=== PATIENT | male | born 1950 | race Hispanic/Latino ===

== ENCOUNTER 2017-01-10 08:40 | Emergency (ER) | payer SELFPAY ==
[2017-01-10 08:48] VITALS: TEMP 97.6
[2017-01-10] MEDS ORDERED: Sodium Chloride 0.9% 1,000 ML IV STA (09:59)
--- NOTE | 2017-01-10 10:01 | C.PDOC ---
History Of Present Illness 66 y/o male presents to ED with complaints of vomiting and severe dizziness since this morning. Patient has no prior medical history but states he does not have PMD and has not been seen by a doctor in years. Patient denies headache, fever, chills, cp or any other complaints at this time. Time Seen by Provider: 01/10/17 09:24 Chief Complaint (Nursing): Dizziness/Lightheaded History Per: Patient History/Exam Limitations: no limitations Onset/Duration Of Symptoms: Hrs Current Symptoms Are (Timing): Still Present Past Medical History Reviewed: Historical Data, Nursing Documentation, Vital Signs Vital Signs: Last Vital Signs Temp 97.6 F 01/10/17 08:46 Pulse 92 H 01/10/17 13:00 Resp 15 01/10/17 13:00 BP 119/70 01/10/17 13:00 Pulse Ox 99 01/10/17 13:11 Family History: States: No Known Family Hx - Social History Hx Alcohol Use: No Hx Substance Use: No Review Of Systems Except As Marked, All Systems Reviewed And Found Negative. Constitutional: Negative for: Fever, Chills Respiratory: Negative for: Shortness of Breath Gastrointestinal: Positive for: Vomiting. Negative for: Nausea, Abdominal Pain Skin: Negative for: Rash Neurological: Positive for: Dizziness. Negative for: Numbness, Headache Physical Exam - Physical Exam Appears: Non-toxic, No Acute Distress Skin: Normal Color, Warm, Dry, No Rash Head: Atraumatic, Normacephalic Eye(s): bilateral: Normal Inspection, PERRL, EOMI, Other (Horizontal Nystagmus) Oral Mucosa: Moist Neck: Normal ROM, Supple Chest: Symmetrical Cardiovascular: Rhythm Regular Respiratory: Normal Breath Sounds, No Rales, No Rhonchi, No Wheezing Gastrointestinal/Abdominal: Soft, No Tenderness, No Guarding, No Rebound Extremity: Normal ROM Neurological/Psych: Oriented x3, Normal Speech, Normal Cognition, Normal Motor, Normal Sensation Gait: Steady ED Course And Treatment - Laboratory Results Result Diagrams: 01/10/17 10:10 01/10/17 10:10 ECG: Interpreted By Me, Viewed By Me Interpretation Of ECG: T waves in 3 and aVF Rate From EC (bpm) O2 Sat by Pulse Oximetry: 99 (RA) Pulse Ox Interpretation: Normal - Other Rad CXR X-Ray: Viewed By Me, Read By Radiologist Interpretation: Accession No. : [id number]. Patient Name / ID : ARLEN TIRADO / [id number]. Exam Date : 01/10/2017 10:01:09 ( Approved ). Study Comment : Sex / Age : M / 66Y. Creator : Chriss Higgins MD. Dictator : Chriss Higgins MD. Court Monitor : Mailing Specialist : Chriss Higgins MD. Approver2 : Report Date : 01/10/2017 11:18:17. My Comment : . PROCEDURE: CHEST RADIOGRAPH, 1 VIEW. HISTORY: dizzy. COMPARISON: No prior study available for comparison. FINDINGS: LUNGS: Poor inspiration with low lung volumes, crowded bronchovascular markings and mild bibasilar. PLEURA: No pneumothorax or pleural fluid seen. CARDIOVASCULAR: Normal. OSSEOUS STRUCTURES: No significant abnormalities. VISUALIZED UPPER ABDOMEN: Normal. OTHER FINDINGS: None. IMPRESSION: Poor inspiration with low lung volumes, crowded bronchovascular markings and mild bibasilar - CT Scan/US Head CT Other Rad Studies (CT/US): Read By Radiologist, Radiology Report Reviewed CT/US Interpretation: Accession No. : [id number]. Patient Name / ID : ARLEN TIRADO / [id number]. Exam Date : 01/10/2017 10:50:58 ( Approved ). Study Comment : Sex / Age : M / 66Y. Creator : Jalen Salinas MD. Dictator : Jalen Salinas MD. Court Monitor : Mailing Specialist : Jalen Salinas MD. Approver2 : Report Date : 01/10/2017 11:03:42. My Comment : . PROCEDURE : CT HEAD WITHOUT CONTRAST. HISTORY: dizziness/vomiting. COMPARISON: None available. TECHNIQUE: Axial computed tomography images were obtained through the head/brain without intravenous contrast. Radiation dose: Total exam DLP = 937.41 mGy-cm. This CT exam was performed using one or more of the following dose reduction techniques: Automated exposure control, adjustment of the mA and/ or kV according to patient size, and/or use of iterative reconstruction technique. FINDINGS: HEMORRHAGE: No intracranial hemorrhage. BRAIN: No mass effect or edema. No atrophy or chronic microvascular ischemic changes. VENTRICLES: Unremarkable. No hydrocephalus. CALVARIUM: Unremarkable. PARANASAL SINUSES: Complete opacification of visualized right maxillary sinus with possible widening of the ostium, suggestive of antrochoanal polyp. Extensive ethmoid chronic sinusitis. Chronic frontal sinusitis and chronic sphenoid sinusitis. Chronic left maxillary sinusitis. MASTOID AIR CELLS: Unremarkable as visualized. No inflammatory changes. OTHER FINDINGS: None. IMPRESSION: No intracranial mass, hemorrhage or evidence of acute infarct. 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 Progress Note: Patient was treated with Zofrana nd Meclizine and Tylenol (for mild headache). However patient still c/o dizziness and "spinning sensation". Patient was offered an admission, but he declines. Family is on bedside and support patient's decision to leave ED AMA. Risks of leaving AMA were explained to the patient and family members. They verbalized understanding, but still insisting on leaving. Medical Decision Making Medical Decision Making: Plan: * Full work up Disposition - Disposition Referrals: [facility] [Outside] [facility] [Outside] [facility] [Outside] Disposition: AGAINST MEDICAL ADVICE Disposition Time: 13:09 Condition: FAIR Additional Instructions: Follow up in Clinic within 1-2 days. Return to ED immediately if feel worse. Prescriptions: Meclizine [Meclizine*] 25 mg PO Q6 #30 tab Instructions: Vertigo (ED), Dizziness (ED) Forms: [facility] ([place]), Work Excuse - Clinical Impression Clinical Impression: Dizziness - Scribe Statement The provider has reviewed the documentation as recorded by the Gregoryibharriet Vegas All medical record entries made by the Scribe were at my direction and personally dictated by me. I have reviewed the chart and agree that the record accurately reflects my personal performance of the history, physical exam, medical decision making, and the department course for this patient. I have also personally directed, reviewed, and agree with the discharge instructions and disposition.
[2017-01-10] MEDS ORDERED: Sodium Chloride 0.9% 1,000 ML ONE (10:06)
[2017-01-10 10:15] LABS: BASO # 0.1 K/uL (0.0-0.2); BASO % 0.8 % (0.0-2.0); EOS # 0.1 K/uL (0.0-0.7); EOS % 1.1 % (0.0-4.0); HEMATOCRIT 47.8 % (35.0-51.0); LYMPH # 1.7 K/uL (1.0-4.3); LYMPH % 25.1 % (20.0-40.0); MEAN CORPUSCULAR HEMOGLOBIN 29.4 pg (27.0-31.0); MEAN CORPUSCULAR HGB CONC 33.8 g/dL (33.0-37.0); MEAN PLATELET VOLUME 6.8 fL (7.2-11.7); MONO # 0.4 K/uL (0.0-0.8); MONO % 5.7 % (0.0-10.0); RED CELL DISTRIBUTION WIDTH 13.8 % (11.5-14.5); WHITE BLOOD COUNT 6.9 K/uL (4.8-10.8)
[2017-01-10 10:23] LABS: CHLORIDE 103 mmol/L (98-107); SODIUM 140 mmol/L (132-148)
[2017-01-10 10:26] LABS: ALB/GLOB RATIO 1.2 (1.0-2.1); ALKALINE PHOSPHATASE 80 U/L (38-126); ALT/SGPT 27 U/L (21-72); AST/SGOT 19 U/L (17-59); BILIRUBIN,TOTAL 0.7 mg/dL (0.2-1.3); BLOOD UREA NITROGEN 16 mg/dL (9-20); CARBON DIOXIDE 25 mmol/L (22-30); GFR AFRICAN-AMERICAN > 60; GLUCOSE,RANDOM 143 mg/dL (75-110); TOTAL PROTEIN 7.4 g/dL (6.3-8.3)
[2017-01-10 10:27] LABS: CALCIUM 8.9 mg/dl (8.6-10.4)
--- NOTE | 2017-01-10 11:05 | CT ---
PROCEDURE: CT HEAD WITHOUT CONTRAST. HISTORY: dizziness/vomiting COMPARISON: None available. TECHNIQUE: Axial computed tomography images were obtained through the head/brain without intravenous contrast. Radiation dose: Total exam DLP = 937.41 mGy-cm. This CT exam was performed using one or more of the following dose reduction techniques: Automated exposure control, adjustment of the mA and/or kV according to patient size, and/or use of iterative reconstruction technique. FINDINGS: HEMORRHAGE: No intracranial hemorrhage. BRAIN: No mass effect or edema. No atrophy or chronic microvascular ischemic changes. VENTRICLES: Unremarkable. No hydrocephalus. CALVARIUM: Unremarkable. PARANASAL SINUSES: Complete opacification of visualized right maxillary sinus with possible widening of the ostium, suggestive of antrochoanal polyp. Extensive ethmoid chronic sinusitis. Chronic frontal sinusitis and chronic sphenoid sinusitis. Chronic left maxillary sinusitis. MASTOID AIR CELLS: Unremarkable as visualized. No inflammatory changes. OTHER FINDINGS: None. IMPRESSION: No intracranial mass, hemorrhage or evidence of acute infarct. 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
--- NOTE | 2017-01-10 11:19 | RAD ---
PROCEDURE: CHEST RADIOGRAPH, 1 VIEW HISTORY: dizzy COMPARISON: No prior study available for comparison FINDINGS: LUNGS: Poor inspiration with low lung volumes, crowded bronchovascular markings and mild bibasilar PLEURA: No pneumothorax or pleural fluid seen. CARDIOVASCULAR: Normal. OSSEOUS STRUCTURES: No significant abnormalities. VISUALIZED UPPER ABDOMEN: Normal. OTHER FINDINGS: None. IMPRESSION: Poor inspiration with low lung volumes, crowded bronchovascular markings and mild bibasilar
[2017-01-10 11:44] VITALS: RESP 15
[2017-01-10 13:05] VITALS: BP 119/70; PULSE 92
[2017-01-10 13:11] VITALS: O2SAT 99
--- NOTE | 2017-01-14 16:18 | CARD ---
APPROVED REPORT EKG Measurement Heart [id number] <Conclusion> Normal sinus rhythm Inferior infarct, age undetermined Abnormal ECG
== END 2017-01-10 13:03 | disposition left against medical advice (07) ==
LOC: C.ER 08:40
DX: R42 Dizziness and giddiness (principal)
CPT/HCPCS: 70450; 71010; 80053; 82550; 82553; 84484; 85025; 85610; 85730; 96361; 96374; 99285; J2405; J7040